=== PATIENT | female | born 1985 | race Caucasian/White ===

== ENCOUNTER 2017-10-29 12:55 | Day surgery (SDC) | payer OTHER ==
[~2017-10-29] VITALS: Ht 172.7 cm; Wt 77.0 kg
[~2017-10-29 12:55] MED LIST: BUPIVACAINE/PF 0.5% ONE; DOCU-131 PO; EPINEPHRINE 1 MG/ML, 1ML ONE; FENU500C PO; IBUP200T48 PO; OXYC-302 PO; PREN1TAB60 PO
[2017-10-29] MEDS ORDERED: LACTATED RINGERS 1,000 ML IV SCH (13:07)
[2017-10-29 13:27] VITALS: BP 131/85
[2017-10-29 13:49] LABS: HCG UR LOT HCG7030192
[2017-10-29 13:56] LABS: HCG UR OBC PASS
[2017-10-29] MEDS ORDERED: MIDAZOLAM 1 MG/ML, 2ML ONE (14:46)
[2017-10-29] MEDS ORDERED: FENTANYL PF 250 MCG/5ML ONE (14:46)
[2017-10-29] MEDS ORDERED: DEXAMETHASONE 4 MG/ML, 1ML ONE (15:09)
[2017-10-29] MEDS ORDERED: ONDANSETRON 2MG/ML, 2ML ONE (15:09)
[2017-10-29] MEDS ORDERED: PROPOFOL 10 MG/ML, 20ML ONE (15:09)
[2017-10-29] MEDS ORDERED: KETOROLAC 30 MG/1 ML ONE (15:09)
[2017-10-29] MEDS ORDERED: CEFAZOLIN 1,000 MG ONE (15:09)
[2017-10-29] MEDS ORDERED: LIDOCAINE-MPF 2% ,5ML ONE ×2 (15:10)
[2017-10-29] MEDS ORDERED: OXYcodone 5 MG/5 ML ORAL.SOL UDC ONE (16:00)
[2017-10-29] MEDS ORDERED: ACETAMINOPHEN 650 MG/20.3 ML UDC ONE (16:00)
[2017-10-29] MEDS ORDERED: DIAZEPAM 5 MG/ML, 2ML IVPush PRN (16:30)
[2017-10-29] MEDS ORDERED: LORazepam 2 MG/ML, 1ML IVPush PRN (16:30)
[2017-10-29] MEDS ORDERED: FENTANYL PF 100 MCG/2ML IV PRN (16:30)
[2017-10-29] MEDS ORDERED: ONDANSETRON 2MG/ML, 2ML IVPush PRN (16:30)
[2017-10-29] MEDS ORDERED: ALBUTEROL/IPRATROPIUM 2.5MG/0.5MG, 3 ML NPPB PRN (16:30)
[2017-10-29] MEDS ORDERED: ACETAMINOPHEN 325 MG TABLET PO PRN ×2 (16:30)
[2017-10-29] MEDS ORDERED: MIDAZOLAM 1 MG/ML, 2ML IV PRN (16:30)
[2017-10-29] MEDS ORDERED: LABETALOL 5MG/ML, 20ML IV PRN (16:30)
[2017-10-29] MEDS ORDERED: HYDROmorphone 1 MG/ML, 1ML IV PRN (16:30)
[2017-10-29] MEDS ORDERED: hydrALAzine 20 MG/ML, 1ML IV PRN (16:30)
[2017-10-29] MEDS ORDERED: OXYcodone 5 MG/5 ML ORAL.SOL UDC PO PRN ×2 (16:30)
[2017-10-29] MEDS ORDERED: MEPERIDINE/PF 25MG/0.5ML IVPush PRN (16:30)
[2017-10-29] MEDS ORDERED: PROMETHAZINE 25 MG/ML, 1ML IV PRN (16:30)
== END 2017-10-29 17:50 ==
LOC: OUT 12:55
PROVIDERS: ATTEND Surgery
DX: K42.9 Umbilical hernia without obstruction or gangrene (principal)
CPT/HCPCS: 49585; 81025; J0171; J0690; J1100; J1885; J2250; J2405; J2704; J3010; J3490; J7120